=== PATIENT | male | born 1965 | race Caucasian/White ===

== ENCOUNTER 2020-03-24 10:09 | Emergency (ER) | payer BC ==
[~2020-03-24] VITALS: Ht 182.9 cm; Wt 104.5 kg
[2020-03-24 10:15] VITALS: TEMP 98.4
[2020-03-24] MEDS ORDERED: ABILIFY 10MG TA10 MG PO (10:29)
[2020-03-24] MEDS ORDERED: LEXAPRO20 MG PO (10:29)
[2020-03-24] MEDS ORDERED: DESYREL 100MG100 MG PO (10:29)
[2020-03-24 10:40] LABS: BASO # 0.1 (0.0-0.2); BASO % 0.9 % (0.0-2.0); EOS # 0.1 (0.0-0.7); EOS % 1.4 % (0-4.0); GRAN # 5.3 (1.4-6.5); GRAN % 67.8 % (42.2-75.2); HEMATOCRIT 49.1 % (42.0-52.0); HEMOGLOBIN 17.4 g/dl (13.5-18.0); LYMPH # 1.7 (1.2-3.4); LYMPH % 21.7 % (20.0-51.0); MEAN CELL VOLUME 91 fl (80.0-100.0); MEAN CORPUSCULAR HEMOGLOBIN 32 pg (27.0-31.0); MEAN CORPUSCULAR HGB CONC 35 g/dl (33.0-37.0); MONO # 0.6 (0.1-0.6); MONO % 7.8 % (1.7-9.3); PLATELET COUNT 185 K/mm3 (130-400); REDCELL DISTRIBUTION WIDTH-CV 12.8 % (11.5-14.5)
[2020-03-24 10:51] LABS: PARTIAL THROMBOPLASTIN TIME 34.4 SECONDS (26.0-37.0)
[2020-03-24 11:06] LABS: INR 1.2 (0.8-3.0); PROTHROMBIN TIME 13.2 SECONDS (9.7-12.8)
[2020-03-24 11:09] LABS: ALANINE AMINOTRANSFERASE 39 U/L (4-49); ALBUMIN 4.3 gm/dL (3.5-5.0); ALKALINE PHOSPHATASE 69 U/L (50-136); ANION GAP 7 mmol/L (7-16); AST,SGOT 35 U/L (15-37); BILIRUBIN,TOTAL 1.1 mg/dL (0.0-1.0); BLOOD UREA NITROGEN 13 mg/dL (9-20); CALCIUM 9.2 mg/dL (8.4-10.2); CARBON DIOXIDE 27 mmol/L (22-30); CHLORIDE 104 mmol/L (98-107); CREATININE, serum 0.82 (0.66-1.25); GLUCOSE 99 mg/dL (74-106); LIPASE 107 U/L (23-300); MAGNESIUM 2.3 mg/dL (1.6-2.3); POTASSIUM 4.1 mmol/L (3.4-5.0); SODIUM 138 mmol/L (137-145); TOTAL PROTEIN 7.7 gm/dL (6.4-8.2)
[2020-03-24 11:24] LABS: TROPONIN-I < 0.012 ng/mL (0.000-0.035)
[2020-03-24 13:45] VITALS: BP 140/92; PULSE 62
== END 2020-03-24 13:45 | disposition home or self-care (01) ==
LOC: COL.ER 10:09
PROVIDERS: Emergency Medicine
DX: R07.89 Other chest pain (principal); F17.220 Nicotine dependence, chewing tobacco, uncomplicated
CPT/HCPCS: J7030; Q9967